=== PATIENT | female | born 1995 | race Hispanic/Latino ===

== ENCOUNTER 2016-11-11 19:36 | Emergency (ER) | payer OTHER ==
[~2016-11-11] VITALS: Ht 149.9 cm; Wt 73.6 kg
[~2016-11-11 19:36] MED LIST: AMOXICILLIN500 MG PO; AZITHROMYCIN500 MG PO; BENADRY2 EX; COLACE100 MG PO; CONCEPT OB PO; ERRIN0.35 MG PO; INTEGRA F PO; KENALOG15 GM/TUBE EX; LORTAB 7.57.5 MG; OS-CAL 500500 M1 PO; PRENATA3 OR; SPRINTEC 2828 DAY PO; ULTRAM50 M1 PO
[2016-11-11] MEDS ORDERED: PRENATA9 PO (20:07)
[2016-11-11 20:20] LABS: URINE BLOOD DIPSTICK NEGATIVE (NEGATIVE); URINE CLARITY CLEAR; URINE COLOR YELLOW; URINE GLUCOSE - DIPSTICK NEGATIVE (NEGATIVE); URINE KETONE >=80 mg/dL (NEGATIVE); URINE LEUK ESTERASE NEGATIVE (NEGATIVE); URINE NITRITE - DIPSTICK NEGATIVE (Negative); URINE PROTEIN - DIPSTICK TRACE mg/dL (NEG-TRACE); URINE SPECIFIC GRAVITY 1.025
[2016-11-11 20:24] LABS: URINE BILIRUBIN - DIPSTICK SMALL (NEGATIVE)
[2016-11-11 20:50] LABS: HEMATOCRIT 36.4 % (37.0-47.0); HEMOGLOBIN 12.7 g/dl (12.0-16.0); IMMATURE GRANULOCYTES 0.4 % (0.0-1.0); MEAN CELL VOLUME 87.5 fL CALC (80.0-100.0); MEAN CORPUSCULAR HGB 30.5 pG CALC (26.0-32.0); MEAN CORPUSCULAR HGB CONC 34.9 g/L CALC (32.0-36.0); NEUT# 9.33 thou/uL (2.00-7.15); RED BLOOD COUNT 4.16 mill/uL (4.20-5.60)
[2016-11-11 21:03] LABS: ALBUMIN 4.3 g/dL (3.2-5.0); ALKALINE PHOSPHATASE 108 u/l (38-126); AMYLASE 61 u/l (30-110); ANION GAP 15 (6-22 (CALC)); BILIRUBIN, TOTAL 0.4 mg/dL (0.0-1.4); BUN 8 mg/dL (7-17); BUN/CREATININE RATIO 16 (12-20 (CALC)); CALCIUM 9.6 mg/dL (8.4-10.2); CARBON DIOXIDE 25 mmol/l (22-30); CHLORIDE 101 mmol/l (95-108); CREATININE 0.5 mg/dL (0.5-1.0); GFR > 60 ML/MIN (>=60 (CALC)); GFR FOR AFR.AMER. > 60 ML/MIN (>=60 (CALC)); GLUCOSE 85 mg/dL (65-105); LIPASE 82 u/l (23-300); POTASSIUM 3.9 mmol/l (3.5-5.1); SGOT/AST 28 u/l (14-36); SGPT/ALT 73 u/l (9-52); SODIUM 137 mmol/l (137-146)
[2016-11-12] MEDS ORDERED: PHENERGAN25 MG/TAB PO (00:38)
[2016-11-12 00:53] VITALS: BP 110/60
== END 2016-11-12 00:51 | disposition home or self-care (01) | DRG 781 ==
LOC: ED 19:36
PROVIDERS: Emergency Medicine
DX: O21.9 Vomiting of pregnancy, unspecified (principal); R19.7 Diarrhea, unspecified; Z3A.08 8 weeks gestation of pregnancy; R10.13 Epigastric pain

== ENCOUNTER 2017-02-10 11:13 | Emergency (ER) | payer OTHER ==
[~2017-02-10] VITALS: Ht 149.9 cm; Wt 75.0 kg
[~2017-02-10 11:13] MED LIST changes: +PHENERGAN25 MG/TAB PO; +PRENATA9 PO
[2017-02-10] MEDS ORDERED: PRE-NATAL PO (11:26)
[2017-02-10] MEDS ORDERED: PENICILLN VK500 MG PO (11:47)
[2017-02-10 12:02] VITALS: BP 103/62
== END 2017-02-10 12:07 | disposition home or self-care (01) | DRG 159 ==
LOC: ED 11:13
DX: K02.9 Dental caries, unspecified (principal); Z33.1 Pregnant state, incidental

== ENCOUNTER 2017-05-15 14:11 | Emergency (ER) | payer OTHER ==
[~2017-05-15] VITALS: Ht 149.9 cm; Wt 79.6 kg
[~2017-05-15 14:11] MED LIST changes: +PENICILLN VK500 MG PO; +PRE-NATAL PO
[2017-05-15] MEDS ORDERED: AMOXICILLIN500 MG PO (15:48)
[2017-05-15 15:50] VITALS: BP 109/62
== END 2017-05-15 16:01 | disposition home or self-care (01) | DRG 153 ==
LOC: ED 14:11
DX: J06.9 Acute upper respiratory infection, unspecified (principal); R09.81 Nasal congestion; R00.0 Tachycardia, unspecified

== ENCOUNTER 2017-06-06 10:05 | Inpatient (IN) | payer OTHER ==
[~2017-06-06] VITALS: Ht 154.9 cm; Wt 80.4 kg
[2017-06-06] VITALS (12 sets, daily range): BP systolic 110–137; BP diastolic 54–90
--- NOTE | 2017-06-06 09:50 | NUR ---
PT CAME TO TRIAGE C/O PAINFUL CONTRACTIONS THAT STARTED LAST NIGHT AT 1999, THAT ARE ABOUT 5 MINUTES APART. PT RATES PAIN 10/10 TO LOWER ABDOMEN. PT IS A , PREVIOUS X 2, WITH EDC 06/21/17, 37+6 WEEKS. HEIGTH/WEIGHT/UA/DOA OBTAINED. ASSISTED TO BED EFM STARTED.
--- NOTE | 2017-06-06 10:05 | NUR ---
DR. FRANCIS AT BEDSIDE ASSESSING PT. SVE DONE. %/-3. MD DISCUSSED WITH PT REGARDING DOING TODAY IF SHE IS IN LABOR, PT VERBALIZED UNDERSTANDING AND IS IN AGREEMENT. PT STATES SHE WANTS TUBAL WELL AND HAS SIGNED CONSENT IN THE OFFICE.
[2017-06-06 10:16] LABS: URINE BLOOD DIPSTICK TRACE-INTACT (NEGATIVE); URINE COLOR YELLOW; URINE GLUCOSE - DIPSTICK NEGATIVE (NEGATIVE); URINE KETONE >=80 mg/dL (NEGATIVE); URINE LEUK ESTERASE TRACE (NEGATIVE); URINE NITRITE - DIPSTICK NEGATIVE (Negative); URINE PROTEIN - DIPSTICK NEGATIVE (NEG-TRACE); URINE SPECIFIC GRAVITY 1.015
[2017-06-06 10:20] LABS: URINE BILIRUBIN - DIPSTICK SMALL (NEGATIVE); URINE CLARITY SL CLOUDY
--- NOTE | 2017-06-06 10:20 | NUR ---
18G IV STARTED ON RIGHT AC, AFTER ONE FAILED ATTEMPT ON RIGHT HAND. LABS DRAWN. PT TOLERATED PROCEDURE WELL.
[2017-06-06 10:21] LABS: BARBITURATES NEGATIVE (NEGATIVE); COCAINE NEGATIVE (NEGATIVE); METHADONE NEGATIVE (NEGATIVE); OXCYCODONE NEGATIVE (NEGATIVE); TETRAHYDROCANNABIONOL NEGATIVE (NEGATIVE); TRICYLIC ANTIDEPRESSANTS NEGATIVE (NEGATIVE)
[2017-06-06 10:38] LABS: HEMATOCRIT 36.1 % (37.0-47.0); HEMOGLOBIN 11.9 g/dl (12.0-16.0); IMMATURE GRANULOCYTES 0.6 % (0.0-1.0); MEAN CELL VOLUME 85.3 fL CALC (80.0-100.0); MEAN CORPUSCULAR HGB 28.1 pG CALC (26.0-32.0); NEUT# 7.2 thou/uL (2.00-7.15); RED BLOOD COUNT 4.23 mill/uL (4.20-5.60); RED CELL DISTRI WIDTH 13.8 % (11.5-15.5)
--- NOTE | 2017-06-06 10:40 | NUR ---
CONSENTS SIGNED, PREOP AND POSTOP TEACHING DONE, PT VERBALIZED UNDERSTANDING.
[2017-06-06 10:51] LABS: ALBUMIN 3.4 g/dL (3.2-5.0); ALKALINE PHOSPHATASE 208 u/l (38-126); ANION GAP 16 (6-22 (CALC)); BILIRUBIN, TOTAL 0.7 mg/dL (0.0-1.4); BUN 7 mg/dL (7-17); BUN/CREATININE RATIO 12 (12-20 (CALC)); CALCIUM 8.8 mg/dL (8.4-10.2); CARBON DIOXIDE 19 mmol/l (22-30); CHLORIDE 110 mmol/l (95-108); CREATININE 0.6 mg/dL (0.5-1.0); GFR > 60 ML/MIN (>=60 (CALC)); GFR FOR AFR.AMER. > 60 ML/MIN (>=60 (CALC)); GLUCOSE 102 mg/dL (65-105); POTASSIUM 3.6 mmol/l (3.5-5.1); SGOT/AST 26 u/l (14-36); SGPT/ALT 44 u/l (9-52); SODIUM 141 mmol/l (137-146); TOTAL PROTEIN 6.5 g/dL (6.3-8.2)
--- NOTE | 2017-06-06 11:00 | NUR ---
RN CLIPPERS USED TO SHAVE SUPRAPUBIC AREA.
--- NOTE | 2017-06-06 11:23 | NUR ---
ROUTINE PREOP MEDS GIVEN. Kit REED CRNA AND Jaylon RING CRNA STUDENT IN THE ROOM. TRANSLATED TO PT ABOUT ANESTHESIA AND CONSENT.
--- NOTE | 2017-06-06 11:28 | NUR ---
EFM OFF, PT LEFT TO OR WITH OR CREW, AMBULATORY, FOR WITH TUBAL LIGATION.
--- NOTE | 2017-06-06 14:00 | NUR ---
PT BACK FROM RECOVERY, TRANSFERED TO BED VIA EZSLIDE. IVF RUNNING WITHOUT PROBLEMS. LOW TRANSVERSE INCISION DRESSING HAS SMALL SHADOW, MARKED BY PACU, NOT INCREASED. FUNDUS FIRM @ U WITH LIGHT LOCHIA. BRITO DRAINING CLEAR YELLOW URINE. SCD'S IN PLACE AND ON. INITIAL POST OP TEACHING DONE, VERBALIZED UNDERSTANDING.
--- NOTE | 2017-06-06 14:54 | NUR ---
Nubain 10mg iv given for itching.
--- NOTE | 2017-06-06 15:56 | NUR ---
Toradol 30mg iv given for pain level of 4 on scale of 1 to 10.
--- NOTE | 2017-06-06 16:00 | NUR ---
Pain level of 1 on scale of 1 to 10.
--- NOTE | 2017-06-06 17:50 | NUR ---
Patient willard discontinued and up out of bed ambulating.
--- NOTE | 2017-06-06 19:05 | NUR ---
PT AWAKE AND ALERT- SITTING UP IN BED, DENIES ANY CONCERNS AT THIS TIME, ASSESSMENT DONE- WNL, IVF'S INFUSING ORDERED W/OUT DIFFCULTY, FAMILY AT BEDSIDE, PT ENCOURAGED TO CALL NURSE FOR ANY NEEDS OR CONCERNS- VERBALIZES UNDERSTANDING.
[2017-06-07 00:15] VITALS: BP 113/72
--- NOTE | 2017-06-07 00:15 | NUR ---
PT SLEEPING QUIETLY IN BED, AROUSES EASILY, DENIES ANY CONCERNS OR NEEDS AT THIS TIME, VSS, MEDICATED SCHEDULED, IVF'S CONT INFUSING W/OUT DIFFICULTY, WILL CONT TO MONITOR PT.
[2017-06-07 04:30] VITALS: BP 100/56
[2017-06-07 06:13] LABS: HEMATOCRIT 31.7 % (37.0-47.0); HEMOGLOBIN 10.6 g/dl (12.0-16.0); IMMATURE GRANULOCYTES 0.6 % (0.0-1.0); MEAN CELL VOLUME 84.1 fL CALC (80.0-100.0); MEAN CORPUSCULAR HGB 28.1 pG CALC (26.0-32.0); MEAN CORPUSCULAR HGB CONC 33.4 g/L CALC (32.0-36.0); NEUT# 10.38 thou/uL (2.00-7.15); RED BLOOD COUNT 3.77 mill/uL (4.20-5.60); RED CELL DISTRI WIDTH 13.8 % (11.5-15.5)
[2017-06-07 09:06] VITALS: BP 107/66
--- NOTE | 2017-06-07 09:06 | NUR ---
0750: REPORT RECEIVED BY NETO DEE. PT IS RESTING IN BED AND DENIES ANY NEEDS AT THIS TIME. CALL LIGHT IN REACH. 0906: ASSESSMENT DONE AND VS WNL CHARTED. PT DENIES HAVING PAIN. PT STATED THAT SHE WOULD SHOWER LATER. PT STATED THAT SHE HAS NOT PASS GAS. ENCOURAGE PT TO AMBULATE IN THE HALLWAY AND PT VERBALIZED UNDERSTANDING. PT DENIES ANY NEEDS AT THIS TIME.
--- NOTE | 2017-06-07 10:44 | NUR ---
PT IS SITTING IN CHAIR WITH FAMILY MEMBERS IN ROOM. PT DENIES ANY NEEDS AT THIS TIME.
--- NOTE | 2017-06-07 12:29 | NUR ---
PT IS AMBULATING IN ROOM WITH FAMILY MEMBERS IN ROOM. NO S/S OF DISTRESS NOTED. PT DENIES ANY NEEDS AT THIS TIME.
[2017-06-07 17:10] VITALS: BP 111/56
--- NOTE | 2017-06-07 17:10 | NUR ---
PT IS RESTING IN BED. VS DONE WNL CHARTED. PT STATED THAT SHE IS PASSING GAS. PT STATED SHE TOLERATED SHOWER WELL. PT DENIES ANY NEEDS AT THIS TIME.
--- NOTE | 2017-06-07 18:18 | NUR ---
DISCUSSED WITH PT DISCHARGE PAPERS AND PT VERBALIZED UNDERSTANDING. PT STATED SHE DID NOT HAVE QUESTIONS. PT AMBULATING IN THE ROOM AND FAMILY IN ROOM. ENCOURAGE PT TO AMBULATED IN THE HALLWAY AND PT VERBALIZED UNDERSTANDING. PT DENIES ANY NEEDS AT THIS TIME. REPORT READY FOR ONCOMING SHIFT.
[2017-06-07 19:45] VITALS: BP 132/68
--- NOTE | 2017-06-08 06:22 | NUR ---
PT LAYING IN BED, EYES CLOSED. RESP EVEN AND UNLABORED. BED IN LOW POSITION, CALL LIGHT IN REACH. INFANT SLEEPING IN OPEN CRIB. REPORT PREPARED FOR ONCOMING SHIFT.
[2017-06-08 07:00] VITALS: BP 106/45
--- NOTE | 2017-06-08 07:00 | NUR ---
PT AWAKE, RESTING IN BED, ASSESSMENT AND VS DONE, STABLE, DENIES ANY PAIN. SMALL AMOUNT OF OLD BLOODY DRAINAGE ON RIGHT SIDE OF INCISION. DISCUSSED WITH PT PLAN OF CARE, INCLUDING DISCHARGE TODAY. PT VERBALIZED UNDERSTANDING.
--- NOTE | 2017-06-08 07:23 | NUR ---
DR. FRANCIS ROUNDING ON PT AT THIS TIME.
[2017-06-08] MEDS ORDERED: IBUPROFEN600 MG PO (08:07)
[2017-06-08] MEDS ORDERED: LORTAB 7.57.5 MG PO (08:09)
--- NOTE | 2017-06-08 08:47 | NUR ---
DISCHARGE INSTRUCTIONS GIVEN TO PT, INCLUDING RX FOR MOTRIN AND LORTAB. ALL QUESTIONS ANSWERED. PT VERBALIZED UNDERSTANDING.
--- NOTE | 2017-06-08 09:45 | NUR ---
PT DISCHARGED HOME, IN STABLE CONDITION, VIA WHEELCHAIR, WITH FAMILY MEMBER.
== END 2017-06-08 09:45 | disposition home or self-care (01) | DRG 766 ==
LOC: OB 10:05 → OBOP 10:05 → OB 10:05 → OBOP 10:39 → OB 10:40
PROVIDERS: ADMIT Obstetrics & Gynecology; ATTEND Obstetrics & Gynecology
PROC: 10D00Z1 Extraction of Products of Conception, Low, Open Approach (ICD-10-PCS; principal; 2017-06-06)
PROC: 0UB70ZZ Excision of Bilateral Fallopian Tubes, Open Approach (ICD-10-PCS; 2017-06-06)
DX: O34.211 Maternal care for low transverse scar from previous cesarean delivery (principal); N85.8 Other specified noninflammatory disorders of uterus; O75.82 Onset (spontaneous) of labor after 37 completed weeks of gestation but before 39 completed weeks gestation, with delivery by (planned) cesarean section; O90.0 Disruption of cesarean delivery wound; Z3A.37 37 weeks gestation of pregnancy; Z37.0 Single live birth
CPT/HCPCS: J2270

== ENCOUNTER 2017-07-11 04:53 | Emergency (ER) | payer OTHER ==
[~2017-07-11] VITALS: Ht 154.9 cm; Wt 71.4 kg
[~2017-07-11 04:53] MED LIST changes: +IBUPROFEN600 MG PO; +LORTAB 7.57.5 MG PO
[2017-07-11 05:54] LABS: HEMATOCRIT 38.9 % (37.0-47.0); HEMOGLOBIN 12.8 g/dl (12.0-16.0); IMMATURE GRANULOCYTES 0.3 % (0.0-1.0); MEAN CELL VOLUME 84.6 fL CALC (80.0-100.0); MEAN CORPUSCULAR HGB 27.8 pG CALC (26.0-32.0); MEAN CORPUSCULAR HGB CONC 32.9 g/L CALC (32.0-36.0); NEUT# 5.62 thou/uL (2.00-7.15); RED BLOOD COUNT 4.6 mill/uL (4.20-5.60); RED CELL DISTRI WIDTH 13.8 % (11.5-15.5)
[2017-07-11 05:58] LABS: ALBUMIN 4.8 g/dL (3.2-5.0); ALKALINE PHOSPHATASE 98 u/l (38-126); ANION GAP 19 (6-22 (CALC)); BILIRUBIN, TOTAL 0.4 mg/dL (0.0-1.4); BUN 15 mg/dL (7-17); BUN/CREATININE RATIO 24 (12-20 (CALC)); CALCIUM 9.6 mg/dL (8.4-10.2); CARBON DIOXIDE 22 mmol/l (22-30); CHLORIDE 106 mmol/l (95-108); CREATININE 0.6 mg/dL (0.5-1.0); GFR > 60 ML/MIN (>=60 (CALC)); GFR FOR AFR.AMER. > 60 ML/MIN (>=60 (CALC)); GLUCOSE 142 mg/dL (65-105); LIPASE 86 u/l (23-300); POTASSIUM 3.9 mmol/l (3.5-5.1); SGOT/AST 22 u/l (14-36); SGPT/ALT 20 u/l (9-52); SODIUM 144 mmol/l (137-146); TOTAL PROTEIN 7.7 g/dL (6.3-8.2)
[2017-07-11 07:21] LABS: URINE BILIRUBIN - DIPSTICK NEGATIVE (NEGATIVE); URINE BLOOD DIPSTICK SMALL (NEGATIVE); URINE CLARITY CLEAR; URINE COLOR YELLOW; URINE GLUCOSE - DIPSTICK NEGATIVE (NEGATIVE); URINE KETONE NEGATIVE (NEGATIVE); URINE LEUK ESTERASE NEGATIVE (NEGATIVE); URINE PH 5.5 (4.5-8.0); URINE PROTEIN - DIPSTICK NEGATIVE (NEG-TRACE); URINE UROBILINOGEN - DIPSTICK 0.2 E.U./dL (0.2)
[2017-07-11 07:29] LABS: URINE EPITHELIAL CELLS FEW EPI/hpf (0-FEW); URINE NITRITE - DIPSTICK NEGATIVE (Negative); URINE SQUAMOUS EPITHELIAL CELL RARE EPI/hpf (0-FEW)
[2017-07-11 07:33] LABS: URINE WBC 0-2 WBC/hpf (0-5)
[2017-07-11 08:14] VITALS: BP 102/54
[2017-07-11] MEDS ORDERED: TAMSULOSIN0.4 MG PO (08:15)
[2017-07-11] MEDS ORDERED: ZOFRAN ODT4 MG PO (08:15)
[2017-07-11] MEDS ORDERED: LORTAB 1010 MG PO (08:15)
[2017-07-11] MEDS ORDERED: CIPROFLOXACN500 MG PO (08:23)
== END 2017-07-11 09:13 | disposition home or self-care (01) | DRG 694 ==
LOC: ED 04:53
PROVIDERS: Emergency Medicine
DX: N13.2 Hydronephrosis with renal and ureteral calculous obstruction (principal); R10.11 Right upper quadrant pain

== ENCOUNTER 2017-10-30 06:42 | Emergency (ER) | payer OTHER ==
[~2017-10-30] VITALS: Ht 154.9 cm; Wt 71.0 kg
[~2017-10-30 06:42] MED LIST changes: +CIPROFLOXACN500 MG PO; +LORTAB 1010 MG PO; +TAMSULOSIN0.4 MG PO; +ZOFRAN ODT4 MG PO
[2017-10-30] MEDS ORDERED: MOTRIN400 MG PO (07:02)
[2017-10-30] MEDS ORDERED: AUGMENTIN875TAB PO (07:02)
[2017-10-30 07:07] VITALS: BP 132/95
== END 2017-10-30 07:30 | disposition home or self-care (01) | DRG 159 ==
LOC: ED 06:42
DX: K03.81 Cracked tooth (principal)

== ENCOUNTER 2021-08-12 18:09 | Emergency (ER) | payer MEDICAID ==
[~2021-08-12] VITALS: Ht 154.9 cm; Wt 68.0 kg
[~2021-08-12 18:09] MED LIST changes: +AUGMENTIN875TAB PO; +MOTRIN400 MG PO
[2021-08-12] MEDS ORDERED: KEFLEX500 MG PO (20:46)
[2021-08-12] MEDS ORDERED: FLONASE AL50 MCG/ACT (20:46)
[2021-08-12 21:33] VITALS: BP 119/73
== END 2021-08-12 21:33 | disposition home or self-care (01) ==
LOC: ED 18:09
DX: U07.1 COVID-19 (principal); J32.9 Chronic sinusitis, unspecified

== ENCOUNTER 2022-08-02 07:40 | Emergency (ER) | payer MEDICAID ==
[~2022-08-02] VITALS: Ht 154.9 cm; Wt 78.8 kg
[~2022-08-02 07:40] MED LIST changes: +FLONASE AL50 MCG/ACT; +KEFLEX500 MG PO
[2022-08-02] MEDS ORDERED: ZOFRAN4 MG/TAB PO (08:14)
[2022-08-02 09:07] VITALS: BP 121/74
[2022-08-02] MEDS ORDERED: TAM75CAP PO (09:12)
== END 2022-08-02 09:59 | disposition home or self-care (01) ==
LOC: ED 07:40
DX: J11.1 Influenza due to unidentified influenza virus with other respiratory manifestations (principal); Z20.822 Contact with and (suspected) exposure to COVID-19

== ENCOUNTER 2022-10-25 18:43 | Emergency (ER) | payer MEDICAID ==
[~2022-10-25] VITALS: Ht 154.9 cm; Wt 77.0 kg
[~2022-10-25 18:43] MED LIST changes: +TAM75CAP PO; +ZOFRAN4 MG/TAB PO
[2022-10-25 20:45] VITALS: BP 99/74
== END 2022-10-25 20:45 | disposition home or self-care (01) ==
LOC: ED 18:43
DX: J02.0 Streptococcal pharyngitis (principal)
CPT/HCPCS: J0561

== ENCOUNTER 2024-03-07 07:32 | Emergency (ER) | payer SELFPAY ==
[~2024-03-07] VITALS: Ht 154.9 cm; Wt 80.4 kg
[~2024-03-07 07:32] MED LIST changes: +AMOXICILLIN500 M2 PO; +MEDDOSEPAK PO; +[UNRECOGNIZED DRUG - OTHER] PO
[2024-03-07] MEDS ORDERED: PAXLOVID 10 X 11 TAB PO (08:39)
[2024-03-07 08:43] VITALS: BP 100/71
== END 2024-03-07 09:03 | disposition home or self-care (01) | DRG 179 ==
LOC: ED 07:32
DX: U07.1 COVID-19 (principal); J02.9 Acute pharyngitis, unspecified